=== PATIENT | male | born 1960 | race Caucasian/White ===

== ENCOUNTER 2018-08-17 18:30 | Emergency (ER) | payer OTHER ==
[~2018-08-17] VITALS: Ht 182.9 cm; Wt 83.0 kg
[2018-08-17 18:36] VITALS: BP 121/77
[2018-08-17] MEDS ORDERED: IBUP-1623 PO (18:56)
[2018-08-17] MEDS ORDERED: DIAZEPAM 5 MG TABLET ONE (18:57)
[2018-08-17] MEDS ORDERED: KETOROLAC 30 MG/1 ML ONE (18:58)
[2018-08-17] MEDS ORDERED: KETOROLAC 30 MG/1 ML IM ONE (19:00)
[2018-08-17] MEDS ORDERED: DIAZEPAM 5 MG TABLET PO ONE (19:00)
== END 2018-08-17 20:29 | disposition home or self-care (01) ==
LOC: ED 20:23
DX: S39.012A Strain of muscle, fascia and tendon of lower back, initial encounter (principal); M51.36 Other intervertebral disc degeneration, lumbar region; X58.XXXA Exposure to other specified factors, initial encounter; Y93.89 Activity, other specified; Y92.89 Other specified places as the place of occurrence of the external cause; Y99.8 Other external cause status
CPT/HCPCS: 72110; 96372; 99283; J1885